=== PATIENT | female | born 2000 | race Caucasian/White ===

== ENCOUNTER 2018-01-13 11:07 | Emergency (ER) | payer BC ==
[2018-01-13] MEDS ORDERED: Dexamethasone IV* 4 MG/ML 5 ML VIAL (20 MG) IVPB ONE (11:52)
[2018-01-13] MEDS ORDERED: Ondansetron ODT TAB* 4 MG PO ONE (11:52)
[2018-01-13] MEDS ORDERED: NS 0.9% 1000 ML* 1,000 ML IV ONE ×2 (11:52→11:55)
--- NOTE | 2018-01-13 12:00 | ED ---
Throat Pain/Nasal Congestion - HPI Summary HPI Summary: Patient is a 17-year-old female who presents emergency department for a fever, sore throat, sinus congestion and vomiting 3 days. No past medical history. Is a student [employer]. Patient states her fever yesterday was 103F. She took Motrin prior to arrival. Denies diarrhea, urinary symptoms. Patient notes some mild upper abdominal discomfort. Denies vaginal discharge or bleeding. Symptoms are mild in severity. Eating and drinking makes symptoms worse. Nothing makes symptoms better. - History of Current Complaint Chief Complaint: EDFluSymptoms Time Seen by Provider: 01/13/18 11:27 Hx Obtained From: Patient - Allergies/Home Medications Allergies/Adverse Reactions: Allergies Allergy/AdvReac Type Severity Reaction Status Date / Time No Known Allergies Allergy Verified 01/13/18 11:18 Home Medications: Home Medications Ibuprofen TAB* [Advil TAB*] 200 - 400 mg PO Q8H PRN 01/13/18 [History Confirmed 01/13/18] PMH/Surg Hx/FS Hx/Imm Hx Previously Healthy: Yes Infectious Disease History: No Infectious Disease History: Denies: Traveled Outside the [place] in Last 30 Days - Social History Occupation: Student Lives: Dormitory/Roommates Review of Systems Positive: Fever, Chills Eyes: Negative Positive: Sore Throat, Nasal Discharge Cardiovascular: Negative Respiratory: Negative Positive: Abdominal Pain, Vomiting, Nausea Genitourinary: Negative Positive: Arthralgia Skin: Negative Neurological: Negative All Other Systems Reviewed And Are Negative: Yes Physical Exam Triage Information Reviewed: Yes Vital Signs On Initial Exam: Initial Vitals Temp Pulse Resp BP Pulse Ox 98.4 F 110 16 131/81 100 01/13/18 11:14 01/13/18 11:14 01/13/18 11:14 01/13/18 11:14 01/13/18 11:14 Vital Signs Reviewed: Yes Appearance: Positive: Well-Appearing - Pt. sitting up in bed in NAD. Skin: Positive: Warm, Dry Head/Face: Positive: Normal Head/Face Inspection Eyes: Positive: Normal, GERARD ENT: Positive: TMs normal, Other - Oral pharynx reveals marked edema and erythema to bilateral tonsils. No excudates. No muffled voice. No drooling. Oral mucosa is dry and lips are chapped. Neck: Positive: Supple, Nontender, No Lymphadenopathy. Negative: Nuchal Rigidity Respiratory/Lung Sounds: Positive: Clear to Auscultation, Breath Sounds Present Cardiovascular: Positive: Normal, RRR Abdomen Description: Positive: Nontender, Soft Musculoskeletal: Positive: Normal Neurological: Positive: Normal, CN Intact II-III Diagnostics - Vital Signs Vital Signs Temp Pulse Resp BP Pulse Ox 01/13/18 11:14 98.4 F 110 16 131/81 100 - Laboratory Result Diagrams: 01/13/18 12:08 01/13/18 12:08 Lab Statement: Any lab studies that have been ordered have been reviewed, and results considered in the medical decision making process. EENT Course/Dx - Course Course Of Treatment: Patient presenting to the emergency department for the above symptoms. She is afebrile. Mildly tachycardic. Oxygen saturations 100% room air which is normal. Patient is nontoxic. Will give IV fluids given recent vomiting and poor oral intake. We'll check basic blood work, strep, mono. IV Decadron given as well. Do not suspect peritonsillar abscess. Labs show a mild elevation in lead received 12.5. CMP is unremarkable. Negative . Negative rapid strep. Monospot test is negative. Patient was examined by Dr. Casillas as well he agrees there are no signs of abscess at this time. She was drinking liquids without difficulty. Given other viral symptoms , no exudates, no cervical lymphadenopathy and negative strep, suspect viral etiology. We'll treat conservatively at this time. Advised patient to increase fluids and rest. Tylenol or Motrin for fever and pain as directed. Close follow-up with health clinic and return to the ER symptoms change or worsen. Pt. understands and agrees with plan. - Differential Diagnoses Differential Diagnoses: Allergic Rhinitis, Influenza, Arnulfo's Angina, Otitis Externa, Otitis Media, Pharyngitis, URI/Bronchitis - Diagnoses Provider Diagnoses: Viral syndrome, Viral pharyngitis Discharge - Sign-Out/Discharge Documenting (check all that apply): Discharge/Admit/Transfer - Discharge Plan Condition: Good Disposition: HOME Prescriptions: Ondansetron ODT TAB* [Zofran 4 MG Odt TAB*] 4 mg PO Q6H PRN #12 tab.odt PRN Reason: Nausea Patient Education Materials: Tonsillitis (ED), Viral Syndrome (ED) Forms: *School Release Referrals: No Primary Care Phys,NOPCP [Primary Care Provider] - Additional Instructions: Follow up with the health clinic Increase fluids and rest Tylenol or Motrin for pain and fever as directed Return to ER for uncontrollable vomiting, difficulty swallowing or breathing - Billing Disposition and Condition Condition: GOOD Disposition: HOME
[2018-01-13 12:26] LABS: ABS Basophils 0.1 10^3/ul (0-0.2); ABS Eosinophils 0.1 10^3/ul (0-0.6); ABS Lymphocytes 0.9 10^3/ul (1.0-4.8); ABS Monocytes 1.1 10^3/ul (0-0.8); ABS Neutrophils 10.3 10^3/ul (1.5-7.7); ABS Nucleated RBC 0 10^3/ul; Hematocrit 38 % (35-47); Hemoglobin 12.4 g/dl (12.0-16.0); Lymphocyte % 7.3 % (25-47); Mean Corpuscular HGB Conc 33 g/dl (31-36); Mean Corpuscular Hemoglobin 27 pg (27-31); Mean Corpuscular Volume 82 fL (80-97); Mean Platelet Volume 7.5 um3 (7.4-10.4); Nucleated Red Blood Cells % 0; Platelet Count 217 10^3/ul (150-450); Red Blood Count 4.58 10^6/ul (4.0-5.4); Red Cell Distribution Width 14 % (10.5-15); White Blood Count 12.5 10^3/ul (3.5-10.8)
[2018-01-13] MEDS ORDERED: Dexamethasone IV* 10 MG in NS 0.9% 50 ML* 50 ML IVPB ONE (12:30)
[2018-01-13 12:41] LABS: EGFR Non-African American 107.8 (>60)
[2018-01-13 14:40] VITALS: BP 115/64
== END 2018-01-13 14:38 | disposition home or self-care (01) ==
LOC: ED 11:07
DX: B34.9 Viral infection, unspecified (principal); J02.9 Acute pharyngitis, unspecified
CPT/HCPCS: 36415; 80053; 84702; 85025; 86308; 87070; 87077; 87651; 96374; 99282; A9270-GY; J1100